=== PATIENT | female | born 1945 | race Caucasian/White ===

== ENCOUNTER 2017-02-04 11:43 | Inpatient (IN) | payer MEDICARE, BC ==
[~2017-02-04] VITALS: Ht 165.1 cm; Wt 182.0 kg
--- NOTE | ~2017-02-04 | CON ---
PATIENT'S NAME: ZACHERY CALL [facility] AGE: 71 Y [address] [place] [facility] [place], [place] [address] LOCATION: [facility] [place] AD[place] DATE: 02/04/2017 Consultation DISCHARGE DATE: FAMILY PHYSICIAN: Clem Montes MD ATTENDING PHYSICIAN: ANDI LAM DATE OF CONSULTATION: 02/05/2017 REFERRING PHYSICIAN: Andi Lam MD REASON FOR VISIT: Lower leg cellulitis. HISTORY OF PRESENT ILLNESS: This is a 71-year-old female patient who was admitted to [facility] with lower leg cellulitis. She has history of morbid obesity, obstructive sleep apnea, restless legs syndrome, essential hypertension, depression, anxiety, and CAD. She has suffered from lower leg cellulitis on and off for over the last year. She has been treated with a steroid cream and an oral course of doxycycline by Dr. Marquez about 6 months ago. She noticed minimal relief in symptoms. She denies fevers, chills, or sweats. She has never worn Unna boot compression wraps. She reports her son applies a "salve" intermittently to her lower legs. She has had home health and physical therapy in the past, but was not progressing with therapy so they stopped coming about 6 months ago. The patient reports she has broken 3 lift chairs since Thursday. She admits to about a 60-pound weight gain in the last year. She notes a red rash to her folds. Improvement is noted with Silvadene. The patient denies chest pain. She admits to dyspnea on exertion. She admits to anxiety. She is a nondiabetic. She complains of restless legs syndrome and had 10/10 leg pain last night, however resolved today. PAST MEDICAL HISTORY: Morbid obesity, obstructive sleep apnea, restless legs syndrome, essential hypertension, depression, anxiety, CAD, GERD, lower leg cellulitis, and chronic hypoxic respiratory failure with oxygen dependence. PAST SURGICAL HISTORY: Cholecystectomy. SOCIAL HISTORY: The patient lives with her son in an apartment in [place], [place]. She denies tobacco use. ALLERGIES: NO KNOWN DRUG ALLERGIES. PATIENT'S NAME: ZACHERY CALL [facility] AGE: 71 Y [address] ROOM: [address] [address] LOCATION: [facility] [place] AD[place] DATE: 02/04/2017 Consultation DISCHARGE DATE: FAMILY PHYSICIAN: Clem Montes MD ATTENDING PHYSICIAN: ANDI LAM CURRENT MEDICATIONS: Please refer to medication administration record. REVIEW OF SYSTEMS: All are negative except as mentioned above in the HPI. PHYSICAL EXAMINATION: VITAL SIGNS: Temperature 98.3, pulse 89, respirations 20, blood pressure 112/54, and pulse oximetry 95% on 1 L. Height is 5 feet 5 inches and weight is 188 kg. BMI is 68.9. GENERAL: The patient is alert and oriented. Anxious. Morbidly obese. In no acute distress. HEENT: Head: Normocephalic, atraumatic. Oral mucosa intact. Poor dentition with missing teeth noted. RESPIRATORY: Shortness of breath on exertion. CARDIOVASCULAR: Regular rate. ABDOMEN: Soft and nontender. EXTREMITIES. +1 pedal pulses at best. +2 foot edema. Nonpitting hard lower leg edema. Legs are erythemic with scattered dermatitis. Heels intact. SKIN: The patient's buttocks intact. Breast folds, abdomen folds, groin folds, and leg folds all have a red, scattered, malodorous rash. LABORATORY DATA: White blood cell count 7.1, hemoglobin 11.6, hematocrit 37.8, and platelets 228. Sodium 140, potassium 3.7, chloride 99, bicarbonate 35, BUN 18, creatinine 0.7, and glucose 117. ASSESSMENT AND PLAN: Again, this is a 71-year-old female patient who was admitted to [facility] with lower leg cellulitis. 1. Bilateral lower leg cellulitis with dermatitis. Cleansed legs, no open areas noted. It would be challenging to wrap or apply Unna boots to her lower extremities. For now, instructed nursing to cleanse with chlorhexidine twice daily, then apply a thin layer of [place] moisture barrier cream. The patient is to have her legs elevated on at least 2 pillows at all times to keep heels afloat. I question if the patient should be on an antibiotic, we will let PCP decide. 2. Candidiasis to folds. I instructed nursing to clean the folds with chlorhexidine, then dry and apply nystatin ointment t.i.d. x14 days. Washed cloths are to be placed in folds. If no relief, the patient would like to switch to Silvadene. We will continue to monitor. 3. Pressure ulcer prevention. The patient is to turn in bed q.2 hours on side to side. She is on a bariatric mattress and we will get an air overlay. 4. Morbid obesity. Dietary consult to apprise counselor on healthy lifestyle habits. PATIENT'S NAME: ZACHERY CALL [facility] AGE: 71 Y [address] ROOM: [place] [address] LOCATION: [facility] [place] ADMIT DATE: 02/04/2017 Consultation DISCHARGE DATE: FAMILY PHYSICIAN: Clem Montes MD ATTENDING PHYSICIAN: ANDI LAM 5. Activity: PT/OT on board. The patient is currently refusing a mcfp. She wants home health on dismissal. I would like to thank Dr. Lam for this consultation. STEPHANI KNAPP APRN FOR MD DANA CUMMINS/melanie /[id number] d: 02/05/171944 t: 02/17/17 1352, CONSULTATION REPORT
--- NOTE | ~2017-02-04 | HP ---
PATIENT'S NAME: ZACHERY CALL [facility] AGE: 71 Y [address] [place] [facility] [place] [address] [place] [facility] [place]: 02/04/2017 History & Physical DISCHARGE DATE: FAMILY PHYSICIAN: Clem Montes MD ATTENDING PHYSICIAN: ANDI TRIPLETT DATE OF SERVICE: REASON FOR ADMISSION: Broken lift-chair. HISTORY OF PRESENT ILLNESS: The patient was initially seen by [facility]. Subsequently, the Hospitalist Service was asked to take over this patient as it is unclear if she is a regular [facility] patient or not. This is a 71-year-old super- morbidly obese female who provides me the history. Apparently, she has broken several lift-chairs in the course of last week and is now unable to get up out of a recumbent position and walk with her walker. As such, she was [facility] for safety. She reports that aside from this issue she has been at her baseline state of health, which is obviously quite poor. REVIEW OF SYSTEMS: All 10 systems have been reviewed and all are negative aside from pertinent positives mentioned above. PAST MEDICAL HISTORY: Super-morbid obesity due to the excess calories, obstructive sleep apnea, restless legs syndrome, chronic lower extremity cellulitis, venous insufficiency, essential hypertension, depression, depression is based on her current medications, and chronic hypoxic respiratory failure with oxygen at home. CURRENT MEDICATIONS: 1. Acetaminophen. 2. Aspirin. 3. Atorvastatin. 4. Benazepril. 5. Citalopram. 6. Furosemide. 7. Fiber gummies. 8. Krill. 9. Metoprolol ER. 10. Nitrofurantoin. 11. Pantoprazole. PATIENT'S NAME: ZACHERY CALL [facility] AGE: 71 Y [address] ROOM: [place] [address] [place] [facility] [place]: 02/04/2017 History & Physical DISCHARGE DATE: FAMILY PHYSICIAN: Clem Montes MD ATTENDING PHYSICIAN: ANDI TRIPLETT 12. Potassium chloride. 13. Requip as needed. 14. Senna. 15. Topical triamcinolone. SOCIAL HISTORY: The patient was residing in her own apartment and denies any toxic habits. FAMILY HISTORY: Reviewed and is noncontributory due to her advanced age and known underlying medical problems. PHYSICAL EXAMINATION: VITAL SIGNS: Temperature 98.3, pulse is 87, respirations 20, blood pressure 117/56, and satting 96% on 1 L nasal cannula. GENERAL: Appears as a super-morbidly obese elderly female in no acute distress. NEUROLOGICAL: Exam is nonfocal. EYES: Exam shows pupils are equal and reactive to light. LYMPHATIC: Exam shows no cervical lymphadenopathy. ENDOCRINE: Exam shows no thyromegaly. LUNGS: Clear to auscultation. HEART: Rate is regular. No appreciable murmurs, gallops, or rubs. GI: Abdomen is soft, nontender, nondistended. : Exam reveals no costovertebral angle tenderness. VASCULAR: Difficult to perform as the patient has super-massive nonpitting lower extremity edema. SKIN: Exam reveals chronic crusting of her lower extremities. PSYCHIATRIC: Exam is appropriate mood, cognition, and affect. LABORATORY DATA: Studies performed in the ER are significant for a bicarb of 35 and a lactate of 1.4. Chest x-ray shows cardiomegaly versus venous hypertension. ASSESSMENT AND PLAN: This is a 71-year-old female who will be admitted with: 1. Unsafe living conditions. The patient will be cared for on the med-surg floor. We will get case management involved in her care. 2. Restless legs syndrome. Continue with Requip. 3. Elevated bicarb. This patient's respiratory history is quite unclear because she tells me that she does have sleep apnea, but she has only been treated with oxygen at this point. We will get a routine ABG to better assess her respiratory status. 4. Super-morbid obesity due to excess calories, body mass index 60 to 69 noted. PATIENT'S NAME: ZACHERY CALL [facility] AGE: 71 Y [address] ROOM: [address] [address] [place] [facility] [place]: 02/04/2017 History & Physical DISCHARGE DATE: FAMILY PHYSICIAN: Clem Montes MD ATTENDING PHYSICIAN: ANDI TRIPLETT 5. Chronic lower extremity cellulitis. The patient is treated with doxycycline as needed for exacerbations though at this point she is at baseline. 6. Deep vein thrombosis prophylaxis will be pharmacologic given her high- risk for deep venous thrombosis. Additional management will depend on clinical course. Time dedicated to this patient encounter is 35 minutes. MD ARPITA LOZOYA/melanie /[id number] D: [id number] T: [id number] HISTORY & PHYSICAL
--- NOTE | ~2017-02-04 | PUL ---
PATIENT'S NAME: ZACHERY CALL [facility] AGE: 71 Y [address] ROOM: [address] [address] [place] [facility] [place]: 02/04/2017 Pulmonary DISCHARGE DATE: FAMILY PHYSICIAN: Clem Montes MD ATTENDING PHYSICIAN: ANDI TRIPLETT NAME OF PROCEDURE: Overnight Pulse Oximetry DATE OF PROCEDURE: February 05 to February 06, 2017 REASON FOR EXAM: Nocturnal hypoxemia RESULTS: The test was started on room air, but supplemental oxygen at 1 liter/minute was added approximately 2 hours and a half into the study. The recording time was 7 hours, 22 minutes, and 4 seconds, with a total valid sampling time of 7 hours, 21 minutes, and 44 seconds. The highest pulse of 128, the lowest pulse 68, with mean pulse of 82. The highest SpO2 of 96%, the lowest SpO2 71%, with a mean SpO2 of 88.2%. The patient spent 3 hours, 21 minutes and 8 seconds with SpO2 less than 89%, representing 45.5% of the total sleep time .The desaturation event index was 5. PHYSICIAN INTERPRETATION: The patient has evidence of significant nocturnal hypoxia and would qualify for supplemental oxygen as per Medicare criteria. MD KIERA AVERY/khadra /[id number] dtt: 02/10/17 1617 , SONIDO GEORGE dtd: 02/10/17 1539
--- NOTE | ~2017-02-04 | DS ---
PATIENT'S NAME: ZACHERY CALL [facility] AGE: 71 Y [address] ROOM: [address] [place], [place] [address] [place] [facility] [place]: 02/04/2017 Discharge Summary DISCHARGE DATE: 02/10/2017 FAMILY PHYSICIAN: Clem Montes MD ATTENDING PHYSICIAN: Seth Lam ADMITTING PHYSICIAN: Dr. Summers. ATTENDING PHYSICIAN: On day of discharge, Dr. Kahn. CONSULTING SERVICES: Wound Care. DISCHARGE DIAGNOSES: 1. Acute on chronic diastolic congestive heart failure. 2. Bilateral lower extremity cellulitis. 3. Bilateral lower extremity venous insufficiency. 4. Immobility. 5. Chronic respiratory failure. 6. Obstructive sleep apnea, recommend outpatient sleep study. 7. Tinea cruris. 8. Super-morbid obesity. DISCHARGE MEDICATIONS: 1. Atorvastatin 40 mg p.o. q.h.s. 2. Benazepril 10 mg p.o. b.i.d. 3. Citalopram 20 mg p.o. daily. 4. Metoprolol 25 mg p.o. daily. 5. Furosemide 40 mg p.o. b.i.d. 6. Potassium chloride 20 mEq p.o. daily. 7. ASA 81 mg p.o. daily. 8. Fiber Gummies one tablet daily. 9. Krill oil 1500 mg 2 capsules p.o. q.h.s. 10. Nitrofurantoin 100 mg p.o. 3 days a week (Thursday, Thursday, Thursday). 11. Sennosides tablet 8.6 mg p.o. q.h.s. 12. Pantoprazole 40 mg p.o. daily. 13. Acetaminophen 325 mg 2 tablets every 6 hours p.r.n. pain or fever. 14. Doxycycline 100 mg p.o. b.i.d. for total of 5 days. 15. Nystatin ointment applied topically t.i.d. to skin folds. 16. Florastor 250 mg p.o. twice daily for GI prophylaxis, continue for 2 weeks. HOSPITAL COURSE: Please refer to the admitting H and P dictated by Dr. Summers. In the ER, it was noted that bicarb was 35, lactate of 1.4. Chest x- ray showed cardiomegaly versus venous hypertension. Ultimately, the patient was admitted on 02/05/2017. Care Management was asked to consult in terms of PATIENT'S NAME: ZACHERY CALL [facility] AGE: 71 Y [address] ROOM: [address] [place], [place] [address] [place] [facility] [place]: 02/04/2017 Discharge Summary DISCHARGE DATE: 02/10/2017 FAMILY PHYSICIAN: Clem Montes MD ATTENDING PHYSICIAN: Seth Lam. There is a concern that patient is living in her home and given her dysmotility. The patient was placed on Lovenox for DVT prophylaxis. We had physical therapy come to see the patient to assist with their services and assess for needs. Wound Care was also consulted and gave their recommendations. The patient was adamant about not pursuing placement in residential facilities. Multiple lift chairs apparently have been ordered for her to be placed within the home. Her Lasix was changed to IV form. We monitored daily weights. She was on vancomycin on 02/07/2017 for her cellulitis. The patient was also then placed on fluid restriction on 02/08/2017. The patient seemed to have some improvement in her bilateral lower extremity edema and erythema. However, the patient does have significant lymphedema. Ultimately, the patient was switched to oral doxycycline on 02/09/2017 and IV vancomycin was discontinued along with IV Lasix. The patient was seen by care management on multiple occasions during her stay. Home Health Care was arranged. The patient was to continue to wear her oxygen at night as she had gone on 2 L. It is recommended that she have an outpatient sleep study done for high suspect of obstructive sleep apnea. Ultimately, the patient is discharged to her home on 02/10/2017, where I believe she lives with her son who is a teacher in [place], therefore he has gone during the daytime hours. Home Health has been arranged to continue with therapies and residential care within the home. I reviewed the importance of continuing on the antibiotics, wearing her oxygen, and discussed healthier lifestyle and diet. I was able to discuss this case with Dr. Montes, who will be acting as her primary care physician. An appointment has been made for her to see him on Thursday02/17/2017 at 2:45 p.m. The patient voiced understanding. The patient voiced understanding of this discharge plan. Discharge for this patient took greater than 35 minutes that included reviewing of medications with the patient including her antibiotics and resuming her oral Lasix and continuing with her home O2. NEFTALI JACOBS PA-C FOR MD ANGELO KNOTT/melanie /[id number] CC: Clem Montes MD d: 02/11/17 0049 t: 03/02/17 1150, DISCHARGE SUMMARY
[2017-02-04 12:35] LABS: BASOPHIL % 0.3 %; EOSINOPHIL # 0.2 K/uL (0.0-0.5); EOSINOPHIL % 3.4 %; HEMATOCRIT 37.8 % (33.0-46.0); HEMOGLOBIN 11.6 g/dL (10.0-15.0); IMMATURE GRANULOCYTE % 0.3 %; LYMPHOCYTE # 0.8 K/uL (0.8-4.0); LYMPHOCYTE % 11.2 %; MCH 29.2 pg (27.0-34.0); MCHC 30.7 gm/dL (32.0-36.5); MCV 95.2 fl (83.0-98.0); MONOCYTE # 0.6 K/uL (0.0-1.0); MONOCYTE % 8.7 %; MPV 9.6 fl (9.4-12.4); NEUTROPHIL # (ANC) 5.4 K/uL (1.8-7.8); NEUTROPHIL % 76.1 %; NRBC % 0 /100WBC (0-0.00); PLATELET COUNT 228 K/uL (150-450); RBC 3.97 M/uL (3.50-5.50); RDW-CV 13.8 % (11.9-14.6); WBC 7.1 K/uL (4.0-11.0)
[2017-02-04 12:46] LABS: INR - (THERAPEUTIC) 0.99 (0.92-1.07); PROTIME 10.4 SECONDS (9.8-11.4); PTT 27 SECONDS (25-32)
[2017-02-04 12:55] LABS: ALBUMIN 3.4 gm/dL (3.5-5.0); ALK PHOS 110 IU/L (33-138); ALT 20 IU/L (12-78); ANION GAP 9.7 (10.0-19.0); AST 21 IU/L (10-40); BLOOD UREA NITROGEN 18 mg/dL (6-24); CALCIUM 8.4 mg/dL (8.5-10.5); CHLORIDE 99 mMol/L (96-110); CREATININE 0.7 mg/dL (0.5-1.1); ESTIMATED GFR (MDRD EQUATION) > 60; POTASSIUM 3.7 mMol/L (3.7-5.1); SODIUM 140 mMol/L (135-145); TOTAL BILIRUBIN 0.7 mg/dL (0.0-1.5)
[2017-02-04 12:59] LABS: CO2 35 mMol/L (22-32)
[2017-02-04 12:59] LABS: BILIRUBIN URINE NEGATIVE (NEGATIVE); BLOOD URINE 25 /UL (NEGATIVE); COLOR URINE YELLOW (YELLOW); GLUCOSE URINE NEGATIVE (NEGATIVE); KETONE URINE NEGATIVE (NEGATIVE); LEUKOCYTES URINE NEGATIVE /UL (NEGATIVE); NITRITE URINE NEGATIVE (NEGATIVE); PROTEIN URINE NEGATIVE (NEGATIVE); SPEC GRAVITY URINE 1.015 (1.003-1.035); TURBIDITY URINE CLEAR (CLEAR); UROBILINOGEN URINE NORMAL (NORMAL)
[2017-02-04 13:03] LABS: CPK 215 IU/L (21-215)
[2017-02-04 13:09] LABS: BACTERIA URINE NEGATIVE (NEGATIVE); EPITHELIAL URINE 0-2 #/HPF (NEGATIVE); RBC URINE RARE #/HPF (NEGATIVE); WBC URINE NEGATIVE #/HPF (NEGATIVE)
[2017-02-04] MEDS ORDERED: LOTENSIN10 MG PO (15:39)
[2017-02-04] MEDS ORDERED: LIPITOR40 MG PO (15:39)
[2017-02-04] MEDS ORDERED: TOPROL XL25 MG PO (15:40)
[2017-02-04] MEDS ORDERED: CELEXA20 MG PO (15:40)
[2017-02-04] MEDS ORDERED: REQUIP1 MG PO (15:44)
[2017-02-04] MEDS ORDERED: LASIX40 MG PO (15:45)
[2017-02-04] MEDS ORDERED: K-TAB OR KLOR-10 MEQ PO (15:46)
[2017-02-04] MEDS ORDERED: FIBER GUMMIES1 EACH PO (15:47)
[2017-02-04] MEDS ORDERED: TRIACET 0.1% 8080 GM TOP (15:47)
[2017-02-04] MEDS ORDERED: ASPIRIN LO-DOSE81 MG PO (15:47)
[2017-02-04] MEDS ORDERED: KRILL OIL 1,501 EACH PO (15:47)
[2017-02-04] MEDS ORDERED: MACROBID100 MG PO (15:48)
[2017-02-04] MEDS ORDERED: SENNA8.6 MG PO (15:49)
[2017-02-04] MEDS ORDERED: PROTONIX40 MG PO (15:51)
[2017-02-04] MEDS ORDERED: TYLENOL325 MG PO (16:09)
[2017-02-05 05:19] LABS: PCO2 48 mmHg (35-45); PO2 92 mmHg (80-90)
[2017-02-05 05:20] LABS: BICARBONATE 32.4 mmol/L (18.0-23.0)
[2017-02-06 06:34] LABS: ALBUMIN 2.8 gm/dL (3.5-5.0); ANION GAP 8.7 (10.0-19.0); BLOOD UREA NITROGEN 13 mg/dL (6-24); CALCIUM 8.1 mg/dL (8.5-10.5); CHLORIDE 101 mMol/L (96-110); CO2 34 mMol/L (22-32); CREATININE 0.6 mg/dL (0.5-1.1); ESTIMATED GFR (MDRD EQUATION) > 60; MAGNESIUM 2.2 mg/dL (1.8-2.6); PHOSPHORUS 2.6 mg/dL (2.5-4.9); POTASSIUM 3.7 mMol/L (3.7-5.1); SODIUM 140 mMol/L (135-145)
[2017-02-07 06:23] LABS: ALBUMIN 2.6 gm/dL (3.5-5.0); ANION GAP 7.6 (10.0-19.0); BLOOD UREA NITROGEN 13 mg/dL (6-24); CALCIUM 7.8 mg/dL (8.5-10.5); CHLORIDE 102 mMol/L (96-110); CREATININE 0.6 mg/dL (0.5-1.1); ESTIMATED GFR (MDRD EQUATION) > 60; MAGNESIUM 2.2 mg/dL (1.8-2.6); PHOSPHORUS 2.5 mg/dL (2.5-4.9); POTASSIUM 3.6 mMol/L (3.7-5.1); SODIUM 142 mMol/L (135-145)
[2017-02-07 06:25] LABS: CO2 36 mMol/L (22-32)
[2017-02-08 07:02] LABS: ALBUMIN 2.6 gm/dL (3.5-5.0); BLOOD UREA NITROGEN 17 mg/dL (6-24); CALCIUM 7.7 mg/dL (8.5-10.5); CHLORIDE 105 mMol/L (96-110); CO2 32 mMol/L (22-32); CREATININE 0.6 mg/dL (0.5-1.1); ESTIMATED GFR (MDRD EQUATION) > 60; MAGNESIUM 2.2 mg/dL (1.8-2.6); PHOSPHORUS 2.8 mg/dL (2.5-4.9); SODIUM 143 mMol/L (135-145)
[2017-02-09 05:43] LABS: ALBUMIN 2.5 gm/dL (3.5-5.0); ANION GAP 6.7 (10.0-19.0); BLOOD UREA NITROGEN 17 mg/dL (6-24); CALCIUM 7.7 mg/dL (8.5-10.5); CHLORIDE 104 mMol/L (96-110); CO2 33 mMol/L (22-32); CREATININE 0.6 mg/dL (0.5-1.1); ESTIMATED GFR (MDRD EQUATION) > 60; PHOSPHORUS 3.1 mg/dL (2.5-4.9); POTASSIUM 3.7 mMol/L (3.7-5.1); SODIUM 140 mMol/L (135-145)
[2017-02-10] MEDS ORDERED: DOXYCYCLINE100 MG PO (15:06)
[2017-02-10] MEDS ORDERED: MYCOSTATIN OINT30 GM TOP (15:08)
[2017-02-10] MEDS ORDERED: FLORASTOR250 MG PO (15:09)
== END 2017-02-10 16:10 | disposition home health service (06) | DRG 291 ==
LOC: GMED 11:43 → GMSU 13:39
PROVIDERS: Family Medicine; Internal Medicine; ADMIT Internal Medicine
PROC: 3E0F7GC Introduction of Other Therapeutic Substance into Respiratory Tract, Via Natural or Artificial Opening (ICD-10-PCS; principal; 2017-02-05)
DX: I11.0 Hypertensive heart disease with heart failure (principal); J96.21 Acute and chronic respiratory failure with hypoxia; Z99.81 Dependence on supplemental oxygen; L03.119 Cellulitis of unspecified part of limb; Z68.44 Body mass index [BMI] 60.0-69.9, adult; I50.33 Acute on chronic diastolic (congestive) heart failure; E66.01 Morbid (severe) obesity due to excess calories; F32.9 Major depressive disorder, single episode, unspecified; I89.0 Lymphedema, not elsewhere classified; M62.3 Immobility syndrome (paraplegic); G25.81 Restless legs syndrome; G47.33 Obstructive sleep apnea (adult) (pediatric); B96.89 Other specified bacterial agents as the cause of diseases classified elsewhere
CPT/HCPCS: G8978; G8979; G8980; G8981; G8982; G8983; J0295; J1650; J1940; J3370; J7030

== ENCOUNTER → 2017-02-04 | Outpatient (CLI) | payer MEDICARE, BC ==
[~2017-02-04] MED LIST: ASPIRIN LO-DOSE81 MG PO; CELEXA20 MG PO; CLEOCIN HCL300 MG PO; DOXYCYCLINE100 MG PO; FIBER GUMMIES1 EACH PO; FLORASTOR250 MG PO; K-TAB OR KLOR-10 MEQ PO; KRILL OIL 1,501 EACH PO; LASIX40 MG PO; LIPITOR40 MG PO; LOTENSIN10 MG PO; MACROBID100 MG PO; MYCOSTATIN OINT30 GM TOP; PROTONIX40 MG PO; REQUIP1 MG PO; SENNA8.6 MG PO; TOPROL XL25 MG PO; TRIACET 0.1% 8080 GM TOP; TYLENOL325 MG PO
--- NOTE | ~2017-02-04 | ER ---
PATIENT'S NAME: ZACHERY CALL [facility] AGE: 71 Y [address] ROOM: [place] [address] LOCATION: [facility] ADMIT DATE: 02/04/2017 ER/Outpatient Report DISCHARGE DATE: FAMILY PHYSICIAN: Clem Montes MD ATTENDING PHYSICIAN: Selena Lopez Time of Arrival: 1143 hours. Time Seen: 1148 hours. IDENTIFICATION: 71-year-old female. CHIEF COMPLAINT: Illness. HISTORY OF PRESENT ILLNESS: The patient is a 71-year-old morbidly obese female brought in by the ambulance. Apparently, the landlord called D. Her lift has been broken for 2 weeks, and she has been calling them to help her get up and down. They were concerned because she is not able to get around. Her son is at work during the day, and she has some sores on the back of her legs. She has had no fever at home. She denies any chest pain. No nausea or vomiting. ALLERGIES: NO KNOWN DRUG ALLERGIES. CURRENT MEDICATIONS: 1. Aspirin 81 mg daily. 2. Atorvastatin 40 mg daily. 3. Benazepril 20 mg daily. 4. Citalopram 20 mg daily. 5. Fiber gummies 2.5 g chewable tablet. 6. Furosemide 40 mg b.i.d. 7. [place]-3 and 6 two capsules daily. 8. Macrobid 100 mg by mouth three times a week on Thursday, Thursday, and Thursday. 9. Metoprolol 25 mg daily. 10. Nystatin cream. 11. Protonix 40 mg daily. 12. Ropinirole 1 mg 1-2 tabs three times a day as needed. 13. Triamcinolone topical cream p.r.n. MEDICAL PROBLEMS: Morbid obesity, lower extremity edema and cellulitis, yeast dermatitis, PATIENT'S NAME: ZACHERY CALL [facility] AGE: 71 Y [address] ROOM: [place] [address] LOCATION: [facility] ADMIT DATE: 02/04/2017 ER/Outpatient Report DISCHARGE DATE: FAMILY PHYSICIAN: Clem Montes MD ATTENDING PHYSICIAN: Selena Lopez hypertension, hearing loss in the left, hyperlipidemia restless legs syndrome, and obstructive sleep apnea. PRIOR SURGERIES: Cholecystectomy. SOCIAL HISTORY: The patient lives at home with her son. He is a teacher in [place], so he is gone during the day. Tobacco use, denies. Alcohol use, denies. Drug use, denies. FAMILY HISTORY: Coronary artery disease, hyperlipidemia, hypertension, and stroke. The patient received a flu shot in September 2016. Prevnar in September 2016. REVIEW OF SYSTEMS: All systems reviewed and negative other than what is noted in the HPI. PHYSICAL EXAMINATION: VITAL SIGNS: Height 5 feet 5-1/2 inches, weight 188 kg, blood pressure 110/58, pulse 83, respirations 18, temperature 99.6, sats 95% on room air. GENERAL: This is a 71-year-old female in no acute distress. HEENT: Normocephalic, atraumatic. Ears: TMs not visualized. Eyes: Pupils are equal and reactive to light and accommodation. Extraocular movements are intact. Nose: Mucosa pink. No lesions. Mouth: No lesions. Pharynx benign. NECK: Supple. No lymphadenopathy. No nuchal rigidity. LUNGS: Clear to auscultation. Breath sounds are equal. No rhonchi, wheezes, or rales. HEART: Regular rate and rhythm. No murmur, rub, or gallop. ABDOMEN: Protuberant. Bowel sounds present. Soft and nondistended. She has erythema in the folds of her abdomen. EXTREMITIES: She has significant lower extremity edema with weeping drainage and redness. DIAGNOSTIC STUDIES: EKG: Normal sinus rhythm at 81 beats per minute. No acute ST elevation or depression. One-view chest x-ray: No acute process, pending Radiology over-read. Catheter UA negative. Urine culture pending. Procalcitonin less than 0.05, lactate 1.4. PATIENT'S NAME: ZACHERY CALL [facility] AGE: 71 Y [address] ROOM: [place] [address] LOCATION: [facility] ADMIT DATE: 02/04/2017 ER/Outpatient Report DISCHARGE DATE: FAMILY PHYSICIAN: Clem Montes MD ATTENDING PHYSICIAN: Selena Lopez Hemoglobin 11.6, hematocrit 37.8, platelets 228, white count 7.1 with normal differential. INR 0.99. Sodium 140, potassium 3.7, chloride 99, CO2 of 35, BUN 18, creatinine 0.7, blood sugar 117. Liver enzymes normal. TSH 1.450. CPK 215, CK-MB 1.7, troponin I less than 0.040, ProBNP 41. Blood cultures x2 pending. IMPRESSION: 1. Lower extremity cellulitis. 2. Morbid obesity. 3. Probable sacral decubitus. The patient said she had sores on her buttocks, but I was not able to roll her here in the emergency room to assess that. 4. Psychosocial issues. The patient at this time is not able to care for herself at home, left unattended. PLAN: Admission for IV antibiotics. Unasyn was ordered in the emergency room 3 g IV x1. The patient was given ropinirole 1 mg for her restless legs syndrome. She was given normal saline at 150 mL/h. Law Enforcement was involved at the time of arrival, and Care Management will need to get involved with any assistance that they can provide. SELENA LOPEZ MD CAR/modl /[id number] d: 02/04/17 2339 t: 02/06/17 0759, OUTPATIENT REPORT
== END | disposition disaster alternative care site (69) ==
LOC: GAMB 11:04
DX: R53.1 Weakness (principal); W19.XXXA Unspecified fall, initial encounter
CPT/HCPCS: A0422; A0425; A0429

== ENCOUNTER → 2017-03-18 | Emergency (ER) | payer MEDICARE, BC ==
[~2017-03-18] MED LIST changes: +DOXYCYCLINE100 MG
== END | disposition disaster alternative care site (69) ==
LOC: GAMB 19:47
DX: R53.1 Weakness (principal)

== ENCOUNTER → 2017-04-28 | Emergency (ER) | payer MEDICARE, BC | END | disposition disaster alternative care site (69) | LOC: GAMB 00:48 | DX: M79.661 Pain in right lower leg (principal); L03.116 Cellulitis of left lower limb; J44.9 Chronic obstructive pulmonary disease, unspecified; R06.2 Wheezing; R60.0 Localized edema; Z99.81 Dependence on supplemental oxygen ==

== ENCOUNTER 2017-05-06 10:11 | Inpatient (IN) | payer MEDICARE, BC ==
[~2017-05-06] VITALS: Ht 165.1 cm; Wt 179.4 kg
--- NOTE | ~2017-05-06 | ER ---
[facility] 72 Y [address] ROOM: [place] [address] LOCATION: [facility] ADMIT DATE: 05/06/2017 ER/Outpatient Report DISCHARGE DATE: FAMILY PHYSICIAN: Clem Montes MD ATTENDING PHYSICIAN: Billy Mcarthur TIME OF ARRIVAL: 10:11. TIME OF EVALUATION: 10:15. CHIEF COMPLAINT: Cellulitis of the lower legs. HISTORY OF PRESENT ILLNESS: The patient is a 72-year-old female, who presented to Emergency Department today with chief complaint of cellulitis in the lower legs. She reports that she has had a long issue with lymphedema and recurrent cellulitis. She reports that she has been on multiple different antibiotics. Apparently, her son was trying to put her on a shoe earlier today, and opened up a sore, it was draining. She does report some subjective fevers and chills. She denies any nausea or vomiting. No diarrhea or constipation. No chest pain. No shortness of breath. PAST MEDICAL HISTORY: 1. Morbid obesity. 2. Obstructive sleep apnea. 3. Restless legs syndrome. 4. Chronic lower extremity cellulitis. 5. Venous insufficiency. 6. Essential hypertension. 7. Depression. 8. Chronic hypoxic respiratory failure with oxygen at home. PAST SURGICAL HISTORY: Cholecystectomy. SOCIAL HISTORY: The patient does reside in her own apartment. She denies any alcohol or illicit drug use. ALLERGIES: NO KNOWN DRUG ALLERGIES. PATIENT'S NAME: REBECA [facility] AGE: 72 Y [address] ROOM: [place] [address] LOCATION: [facility] ADMIT DATE: 05/06/2017 ER/Outpatient Report DISCHARGE DATE: FAMILY PHYSICIAN: Clem Montes MD ATTENDING PHYSICIAN: Billy Mcarthur MEDICATIONS: Please see list. REVIEW OF SYSTEMS: All systems are reviewed by myself, and are negative with the exception of those discussed in HPI and past medical history. PHYSICAL EXAMINATION: VITAL SIGNS: Weight is 183 kg. Blood pressure was 120/61, pulse was 72, respiratory rate was 20, temperature was 96.9, and oxygen saturation was 91% on room air. GENERAL: The patient is a 72-year-old female, who appears older than stated age. She is morbidly obese, in no acute distress. HEENT: Normocephalic and atraumatic. Pupils are equal, round, and reactive to light. Oropharynx is clear. NECK: Supple. CARDIOVASCULAR: Regular rate and rhythm. LUNGS: Diminished diffusely. ABDOMEN: Soft and nontender and nondistended. MUSCULOSKELETAL: The patient is able to move all 4 extremities. SKIN: The patient has massive non-pitting bilateral lower extremity edema. She has chronic crusting in lower extremities. She has an open wound to the right foot. She also has excoriation and irritation on multiple skin folds. LABORATORY DATA AND DIAGNOSTIC IMAGING: Labs and x-rays are obtained. Venous Blood Gas: 7.45/64/60/45/-17.3. Lactate is normal. CBC is normal. Coags are normal. INR is normal. Procalcitonin was less than 0.05. CMP was normal except for CO2 of 38. ALT is normal. Cardiac enzymes are normal. ProBNP is normal. IMPRESSION: 1. Chronic venous stasis due to lymphedema. 2. Bilateral lower extremity cellulitis. 3. Failed outpatient therapy. 4. Acute on chronic hypercapnia. 5. Initial visit. EMERGENCY DEPARTMENT COURSE: The patient was brought back to the Examination Room. Seen and evaluated by myself. Laboratory analysis was obtained as described above. I have discussed the case with Wound Care. She was supposed to see Wound Care today; however, she was unable to make the appointment. Alesha Kaba has seen PATIENT'S NAME: ZACHERY CALL [facility] AGE: 72 Y [address] ROOM: [address] [address] LOCATION: [facility] ADMIT DATE: 05/06/2017 ER/Outpatient Report DISCHARGE DATE: FAMILY PHYSICIAN: Clem Montes MD ATTENDING PHYSICIAN: Billy Mcarthur and evaluated the patient down here in the Emergency Department. She is concerned that the patient's legs look significantly worse than they have previously. The patient has been on antibiotics. I have discussed this case with her. They have wrapped the wounds and placed nystatin powder on the fungal infection areas. Alesha has discussed the case with Dr. Mcarthur, who is on-call for the patient's primary care doctor, Dr. Montes. The patient will be admitted for observation for further evaluation and treatment and management. DISPOSITION: The patient was admitted under the care of Dr. Mcarthur in stable condition. DO KEVEN FERRELL/melanie /[id number] d: 05/06/172127 t: 05/11/172032, OUTPATIENT REPORT
--- NOTE | ~2017-05-06 | DS ---
PATIENT'S NAME: ZACHERY CALL [facility] AGE: 72 Y [address] ROOM: [place] [address] LOCATION: [facility] ADMIT DATE: 05/06/2017 Discharge Summary DISCHARGE DATE: FAMILY PHYSICIAN: Clem Montes MD ATTENDING PHYSICIAN: Billy Mcarthur DISCHARGE DIAGNOSES: 1. Cellulitis of lower extremities bilaterally. 2. Lymphedema. 3. Anxiety. 4. Hypertension. 5. Elevated glucose. 6. Obesity. 7. Restless legs syndrome. 8. Obstructive sleep apnea. CONSULTATIONS: Consults during admission: Wound Care, PT and OT, and Care Management. PROCEDURES DURING ADMISSION: None. HOSPITAL COURSE: The patient is a 72-year-old female, who was admitted for bilateral lower extremity cellulitis with lymphedema, who failed outpatient therapy. The patient was started on vancomycin and had a PICC line placed. The patient had Wound Care followed and had Unna boots replaced during the hospital stay. The patient had PT and OT work with her also. Upon day of discharge, patient's legs had improved. Her lymphadenopathy and lower extremity edema also improved. The patient's sugars, restless legs syndrome, anxiety, obstructive sleep apnea, and hypertension remained stable during hospital stay. DISCHARGE CONDITION: Stable. DISPOSITION: Home. DISCHARGE MEDICATIONS: Please see list. DISCHARGE INSTRUCTIONS: The patient will continue on clindamycin 3 times a day for another 7 days. She will follow up with Wound Care in 1 week to have the Unna boots removed and re-evaluated. During the hospital stay, we felt that she was not capable of taking care of herself at home and wanted her to go to a long-term or skilled facility and the patient adamantly refused the entire hospital stay even to the day of discharge. I told her I am concerned about this that she will keep bouncing back because she is unable to take care of herself at home and the patient is still adamantly refused. PATIENT'S NAME: ZACHERY CALL [facility] AGE: 72 Y [address] ROOM: [place] [address] LOCATION: [facility] ADMIT DATE: 05/06/2017 Discharge Summary DISCHARGE DATE: FAMILY PHYSICIAN: Clem Montes MD ATTENDING PHYSICIAN: Billy Mcarthur MD Kelsey ADAMS /[id number] d: 05/18/17 1536 t: 05/22/17 1901, DISCHARGE SUMMARY
--- NOTE | ~2017-05-06 | CON ---
PATIENT'S NAME: ZACHERY CALL [facility] AGE: 72 Y [address] ROOM: [address] [place], [place] [address] LOCATION: [facility] ADMIT DATE: 05/06/2017 Consultation DISCHARGE DATE: FAMILY PHYSICIAN: Clem Montes MD ATTENDING PHYSICIAN: Billy Mcarthur DATE OF CONSULTATION: 05/06/2017 REASON FOR CONSULT: Lower leg lymphedema. HISTORY OF PRESENT ILLNESS: This is a 72-year-old female patient who I was requested to see for lower leg lymphedema. I last saw her in January 2017. She has a significant history of lymphedema, recurrent cellulitis, immobility, morbid obesity, recurrent Candidal intertrigo infections, restless legs syndrome, hypertension, and obstructive sleep apnea. She endorses lower leg cellulitis on and off for the last year. She has tried steroid treatments in the past by Dr. Marquez. She has been on Keflex, doxycycline, and a recent course of clindamycin. She normally wears circaid wraps to her lower legs. Wraps have not been applied in the last week due to cellulitis. The patient complains of 8/10 lower leg pain. She admits to lower leg tingling and heaviness. Her son is her primary wound care coordinator. She denies fevers, chills, or sweats. She reports a fair oral intake. She denies chest pain. She admits to shortness of breath on exertion. She complains of anxiety. She is a nondiabetic and nonsmoker. She denies history of cancer or lower leg trauma. Her son does note an open area to her right dorsal foot, site open this morning. The patient uses Silvadene to her folds at home. She has not worn Unna boot therapy in the past. PAST MEDICAL HISTORY: Lymphedema, recurrent cellulitis, immobility, obstructive sleep apnea, morbid obesity, restless legs syndrome, essential hypertension, anxiety, depression, coronary artery disease, GERD, chronic hypoxic respiratory failure with oxygen dependence, candidal intertrigo infection, and grade 1 diastolic dysfunction with preserved EF of 55%. PAST SURGICAL HISTORY: Cholecystectomy. FAMILY HISTORY: Coincidently, the patient notes her suffered from lymphedema. Her father suffered from diabetes and coronary artery disease. SOCIAL HISTORY: The patient lives with her sonJing in an apartment in [place]. She denies PATIENT'S NAME: ZACHERY CALL [facility] AGE: 72 Y [address] ROOM: [address] [place], [place] [address] LOCATION: [facility] ADMIT DATE: 05/06/2017 Consultation DISCHARGE DATE: FAMILY PHYSICIAN: Clem Montes MD ATTENDING PHYSICIAN: Billy Mcarthur. She is relatively immobile and spends majority of her time in her lift chair. She does take a few steps to the bathroom. ALLERGIES: NO KNOWN DRUG ALLERGIES. CURRENT MEDICATIONS: List being compiled. REVIEW OF SYSTEMS: Pertinent positives addressed in the HPI and all others are negative. PHYSICAL EXAMINATION: VITAL SIGNS: Please refer to ER notes. Height 5 feet 5 inches, weight 178.9 kg. BMI 65.6. GENERAL: The patient is alert and oriented x3. Anxious. Morbidly obese. HEENT: Head: Normocephalic, atraumatic. Poor dentition with missing teeth noted. RESPIRATORY: Shortness of breath on exertion. ABDOMEN: Large pannus. Soft. EXTREMITIES: Easily doppled pedal pulses. Significant lymphedema with erythema to the lower legs. Lower legs hot to touch. Positive Stemmer's sign. Capillary refill intact. Musculoskeletal 2/5 motor strength to lower extremities. SKIN: Obvious lower leg lymphedema with extensive cellulitis. No active ulcers. Hyperkeratosis to toes. 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 Significant leg skin folds noted. All folds are red with a candidiasis rash. Strong odor noted. Lower extremities are very tender to touch. Right lateral dorsal foot has a moist pink ulcer that measures 5.0 cm width x 4.5 cm length x 0.1 cm depth. Periwound erythemic. Small serous exudate. The patient's breast, abdominal, and groin folds are red with a candidiasis infection. Satellite lesions noted to right breast. Significant odor. Unable to roll patient to visualize buttocks. LABORATORY DATA: White blood cell count 6.3, hemoglobin 11.4, hematocrit 37.7, platelets 246. Sodium 143, potassium 4.0, chloride 101, bicarb 38, BUN 18, creatinine 0.5, glucose 106, albumin 2.8, procalcitonin 0.05. ProBNP 110. Cardiac enzymes negative. ASSESSMENT AND PLAN: Again, this is a 72-year-old female patient who I was called to evaluate due to significant lymphedema. 1. Bilateral lower leg stage III lymphedema with extensive cellulitis. This PATIENT'S NAME: ZACHERY CALL [facility] AGE: 72 Y [address] ROOM: [place] [address] LOCATION: [facility] ADMIT DATE: 05/06/2017 Consultation DISCHARGE DATE: FAMILY PHYSICIAN: Clem Montes MD ATTENDING PHYSICIAN: Billy Mcarthur appears to be a secondary lymphedema case with significant cellulitis. Contributing factors include recurrent cellulitis, obesity, immobility, and probable venous insufficiency. No history of cancer, kam, or lower leg trauma. No history of DVTs. Unreliable for intermittent claudication symptoms. The patient has failed outpatient oral antibiotic therapy. She needs IV antibiotic therapy and comprehensive decongestive compressive therapy. I discussed the case with Dr. Barros. He would recommend IV vancomycin. The [facility]OC RN wrapped the patient's lower extremities with Unna boots. Prior to application, she applied nystatin topical powder to patient's leg folds. The patient will have a PT evaluation for bilateral lower leg lymphedema pumps. The patient would benefit from home health on discharge. She is adamant about avoiding a long-term placement. The patient is to have her legs elevated to heart level at all times. 2. Significant systemic skin Candidal intertrigo rash. Ordered fluconazole 800 mg x1 today and then 400 mg x7 days. I instructed nursing to perform meticulous skin hygiene, cleansing the patient's folds with Hibiclens, drying thoroughly, and applying wash cloths between folds b.i.d. If no improvement is noted, we will have pharmacy order Domeboro astringent solution. 3. Morbid obesity. The patient was placed on a bariatric mattress. STEPHANI KNAPP APRN FOR MD DANA CUMMINS/melanie /[id number] d: 05/07/17 0159 t: 05/25/17 1812, CONSULTATION REPORT
--- NOTE | ~2017-05-06 | HP ---
PATIENT'S NAME: ZACHERY CALL [facility] AGE: 72 Y [address] ROOM: [address] [place], [place] [address] LOCATION: [facility] ADMIT DATE: 05/06/2017 History & Physical DISCHARGE DATE: FAMILY PHYSICIAN: Clem Montes MD ATTENDING PHYSICIAN: Bladimir Mcarthur DATE OF SERVICE: CHIEF COMPLAINT: Worsening of lower extremities. HISTORY OF PRESENT ILLNESS: The patient is a 72-year-old female who has significant history of lymphedema and apparently has been battling the cellulitis now for a while. She has been on multiple p.o. antibiotics including Keflex, doxycycline, and most recently clindamycin. She has had an increasing decline since January 2017. Apparently, she was seen in the ER by the walk nurses and they are called recommending that she be admitted to see if we could improve her compliance keeping the legs elevated, keeping the Unna boots on and for some IV antibiotics with her worsening overall status. Her labs actually looked pretty good. Her procalcitonin was normal. BMP looked pretty good and was not significantly felt to be septic. She has also been afebrile and on her normal 3 L oxygen at home. So subsequently, we will at least admit her for now and see if we can see some improvement with her legs. PAST MEDICAL HISTORY: Significant for venous stasis of both lower extremities with resultant ulceration, stasis dermatitis of both legs, obstructive sleep apnea treated with BiPAP at night. Morbid obesity with BMI between 60 and 69. Hyperlipidemia, hypertension, elevated fasting glucose, heart failure with preserved ejection fraction and chronic respiratory failure with hypoxia, normally on 3 L of oxygen. CURRENT MEDICATIONS: Include, 1. Aspirin 81 mg one a day. 2. Atorvastatin 40 mg at bedtime. 3. Benazepril 10 mg one a day. 4. Citalopram 20 mg one a day. 5. Clindamycin that was started on the 300 mg t.i.d. 6. Furosemide 40 mg one a day. 7. Macrobid 100 mg one a day. 8. Metoprolol extended release 25 mg one a day. 9. Nystatin topical powder and topical cream p.r.n. 10. Protonix 40 mg daily. PATIENT'S NAME: ZACHERY CALL [facility] AGE: 72 Y [address] ROOM: [address] [place], [place] [address] LOCATION: [facility] ADMIT DATE: 05/06/2017 History & Physical DISCHARGE DATE: FAMILY PHYSICIAN: Clem Montes MD ATTENDING PHYSICIAN: Bladimir Mcarthur 11. Ropinirole 1 mg 3 times a day as needed. 12. Triamcinolone cream. ALLERGIES: NONE. PRIOR SURGERY: She had a gallbladder removal. VACCINATIONS: She had a Prevnar 13 on 10/21/2016 and Pneumococcal 23 on 07/11/2009. She has had Influenza vaccines most recently on 10/21/2016. REVIEW OF SYSTEMS: As per HPI, otherwise noncontributory. Specifically, she denies any chest pain or pressure, shortness of breath, orthopnea or PND. No melena, hematochezia, or bright red per rectum. LABORATORY DATA: Her lab in the ER was really unremarkable. White cell count 6300, hemoglobin 11.4, hematocrit 37.7% with a normal differential. PT is 10.1. INR 0.96. ABG shows a pH of 7.45, pCO2 of 64, PO2 of 60, bicarb 44.5, percent saturation 92%. Sodium 143, potassium 4.0, chloride 101, CO2 of 38, glucose 106, calcium 8.1, BUN 18, creatinine 0.5, bilirubin 0.4, alkaline phosphatase 97, AST 14, ALT 13. Estimated GFR is greater than 60. CPK and CPK-MB are both normal. Troponin is normal less than 0.040. Pro BNP is 110. PHYSICAL EXAMINATION: GENERAL: The patient is nontoxic appearing female in no acute distress. HEENT: Normocephalic and atraumatic. Ears: TMs are clear intact bilaterally. Nose patent. Throat clear. Neck is supple without lymphadenopathy or JVD. HEART: Regular rate and rhythm. LUNGS: Clear to auscultation bilaterally without wheezes, rhonchi, or rales. ABDOMEN: Soft, nontender, nondistended. Bowel sounds positive. There is no hepatosplenomegaly. No guarding or rebound. EXTREMITIES: Are wrapped with Unna boots bilaterally and unable to assess the extent of the erythema, sounds like there is a significant amount of cellulitis and fungal infection to the groin is definitely noted. According to the walk nurse, there is a 5 x 4.5 cm wound over the lateral dorsal foot. ASSESSMENT AND PLAN: A 72-year-old white female with the following problem list: 1. Cellulitis, which has been resistant to outpatient treatment. We will go and admit for IV vancomycin per recommendations of the walk nurses. We PATIENT'S NAME: ZACHERY CALL [facility] AGE: 72 Y [address] ROOM: [place] [address] LOCATION: [facility] ADMIT DATE: 05/06/2017 History & Physical DISCHARGE DATE: FAMILY PHYSICIAN: Clem Montes MD ATTENDING PHYSICIAN: Bladimir Mcarthur will go and recheck labs in the morning. Hopefully get a better chance to look at that once this Unna boots are off. 2. Significant venous stasis dermatitis with significant amount of lymphedema. Continue to work with walk nurses and physical therapy with lymphedema pumps. They are done 2 hours b.i.d. and elevating legs to the level of the heart as well. 3. Heart failure with preserved ejection fraction. Overall, she is clinically stable at this point. 4. Chronic hypoxic respiratory failure. Currently on 3 L of oxygen. Overall, she is stable. 5. Morbid obesity with BMI between 60 to 69. I also encouraged weight loss. 6. Restless legs syndrome. Overall stable. She voiced understanding of that plan. Dr. Montes to assume care in the morning. BLADIMIR MCARTHUR MD TAB/modl /[id number] D: 048 T: 623 HISTORY & PHYSICAL
[~2017-05-06 10:11] MED LIST changes: -CLEOCIN HCL300 MG PO; -DOXYCYCLINE100 MG
[2017-05-06 10:59] LABS: LACTATE 1.1 mEq/L (0.50-1.60)
[2017-05-06 11:00] LABS: BASOPHIL % 0.5 %; BICARBONATE 44.5 mmol/L (18.0-23.0); EOSINOPHIL # 0.3 K/uL (0.0-0.5); EOSINOPHIL % 4.8 %; HEMATOCRIT 37.7 % (33.0-46.0); HEMOGLOBIN 11.4 g/dL (10.0-15.0); IMMATURE GRANULOCYTE % 0.5 %; LYMPHOCYTE # 1.1 K/uL (0.8-4.0); MCHC 30.2 gm/dL (32.0-36.5); MCV 99.2 fl (83.0-98.0); MONOCYTE # 0.6 K/uL (0.0-1.0); MONOCYTE % 8.7 %; MPV 9.9 fl (9.4-12.4); NEUTROPHIL # (ANC) 4.3 K/uL (1.8-7.8); NEUTROPHIL % 67.5 %; NRBC % 0 /100WBC (0-0.00); PCO2 64 mmHg (35-45); PLATELET COUNT 246 K/uL (150-450); PO2 60 mmHg (80-90); RDW-CV 13.8 % (11.9-14.6); WBC 6.3 K/uL (4.0-11.0)
[2017-05-06 11:10] LABS: INR - (THERAPEUTIC) 0.96 (0.92-1.07); PROTIME 10.1 SECONDS (9.8-11.4)
[2017-05-06 11:20] LABS: ALBUMIN 2.8 gm/dL (3.5-5.0); ALK PHOS 97 IU/L (33-138); ALT 13 IU/L (12-78); AST 14 IU/L (10-40); BLOOD UREA NITROGEN 18 mg/dL (6-24); CALCIUM 8.1 mg/dL (8.5-10.5); CHLORIDE 101 mMol/L (96-110); CPK 39 IU/L (21-215); CREATININE 0.5 mg/dL (0.5-1.1); ESTIMATED GFR (MDRD EQUATION) > 60; SODIUM 143 mMol/L (135-145); TOTAL PROTEIN 6.8 g/dL (6.0-8.4)
[2017-05-06 11:22] LABS: CO2 38 mMol/L (22-32); TOTAL BILIRUBIN 0.4 mg/dL (0.0-1.5)
[2017-05-07 06:15] LABS: BASOPHIL % 0.5 %; EOSINOPHIL # 0.2 K/uL (0.0-0.5); EOSINOPHIL % 3.8 %; HEMATOCRIT 33.7 % (33.0-46.0); HEMOGLOBIN 10.2 g/dL (10.0-15.0); IMMATURE GRANULOCYTE % 0.5 %; LYMPHOCYTE # 0.9 K/uL (0.8-4.0); MCH 29.3 pg (27.0-34.0); MCHC 30.3 gm/dL (32.0-36.5); MCV 96.8 fl (83.0-98.0); MONOCYTE # 0.5 K/uL (0.0-1.0); MONOCYTE % 9.2 %; MPV 9.8 fl (9.4-12.4); NRBC % 0 /100WBC (0-0.00); PLATELET COUNT 225 K/uL (150-450); RBC 3.48 M/uL (3.50-5.50); RDW-CV 13.7 % (11.9-14.6); WBC 5.8 K/uL (4.0-11.0)
[2017-05-07 06:43] LABS: ALBUMIN 2.3 gm/dL (3.5-5.0); ALK PHOS 80 IU/L (33-138); ALT 13 IU/L (12-78); AST 13 IU/L (10-40); BLOOD UREA NITROGEN 16 mg/dL (6-24); CALCIUM 8.1 mg/dL (8.5-10.5); CHLORIDE 103 mMol/L (96-110); CREATININE 0.5 mg/dL (0.5-1.1); ESTIMATED GFR (MDRD EQUATION) > 60; POTASSIUM 3.8 mMol/L (3.7-5.1); SODIUM 142 mMol/L (135-145); TOTAL PROTEIN 6.1 g/dL (6.0-8.4)
[2017-05-07 06:48] LABS: ANION GAP 4.8 (10.0-19.0); CO2 38 mMol/L (22-32); TOTAL BILIRUBIN 0.5 mg/dL (0.0-1.5)
[2017-05-12 08:08] LABS: CREATININE 0.5 mg/dL (0.5-1.1)
[2017-05-13 04:34] LABS: CREATININE 0.5 mg/dL (0.5-1.1)
[2017-05-14 03:26] LABS: CREATININE 0.5 mg/dL (0.5-1.1)
[2017-05-15 05:28] LABS: CREATININE 0.5 mg/dL (0.5-1.1)
[2017-05-16 06:07] LABS: CREATININE 0.5 mg/dL (0.5-1.1)
[2017-05-18] MEDS ORDERED: CLEOCIN HCL300 MG PO (15:27)
[2017-07-10] MEDS ORDERED: DOXYCYCLINE100 MG (13:29)
== END 2017-05-18 16:55 | disposition home health service (06) | DRG 603 ==
LOC: GMED 10:11 → G3N 14:20
PROVIDERS: Emergency Medicine; ADMIT Family Medicine
PROC: 02HV33Z Insertion of Infusion Device into Superior Vena Cava, Percutaneous Approach (ICD-10-PCS; principal; 2017-05-11)
DX: L03.116 Cellulitis of left lower limb (principal); J96.11 Chronic respiratory failure with hypoxia; Z68.44 Body mass index [BMI] 60.0-69.9, adult; Z99.81 Dependence on supplemental oxygen; I11.0 Hypertensive heart disease with heart failure; I50.30 Unspecified diastolic (congestive) heart failure; G25.81 Restless legs syndrome; E78.5 Hyperlipidemia, unspecified; B37.2 Candidiasis of skin and nail; L03.115 Cellulitis of right lower limb; E66.01 Morbid (severe) obesity due to excess calories; I89.0 Lymphedema, not elsewhere classified; G47.33 Obstructive sleep apnea (adult) (pediatric); I87.2 Venous insufficiency (chronic) (peripheral); R73.01 Impaired fasting glucose; F41.9 Anxiety disorder, unspecified; Z79.82 Long term (current) use of aspirin; Z74.09 Other reduced mobility; L85.9 Epidermal thickening, unspecified
CPT/HCPCS: C1751; J0696; J1650; J2001; J2060; J3370; J7040; J7050

== ENCOUNTER → 2017-05-06 | Outpatient (CLI) | payer MEDICARE, BC | END | disposition disaster alternative care site (69) | LOC: GAMB 09:56 | DX: R53.1 Weakness (principal); E66.9 Obesity, unspecified; L03.116 Cellulitis of left lower limb; L03.115 Cellulitis of right lower limb; R60.9 Edema, unspecified; Z79.899 Other long term (current) drug therapy | CPT/HCPCS: A0422; A0425; A0429 ==